=== PATIENT | male | born 1950 | race Caucasian/White ===

== ENCOUNTER 2017-07-12 06:49 | Emergency (ER) | payer MEDICARE, OTHER ==
[2017-07-12 07:22] VITALS: TEMP 97.6; BMI 25.8
--- NOTE | 2017-07-12 07:58 | PDOC ---
History of Present Illness - General Chief Complaint: Nasal Bleeding Stated Complaint: NOSEBLEED,FACIAL PAIN/ nose fx 2009 Time Seen by Provider: 07/12/17 07:33 History Source: Patient Exam Limitations: No Limitations - History of Present Illness Initial Comments: 07/12/17 07:49 66-year-old male presents to the ED with intermittent nasal bleeding and runny nose over the past 2 years. Patient states sustained a traumatic nasal fracture requiring surgery back in 2009 and states has been back and forth to [facility] since then and now that he has insurance he wants to continue the care that was recommended by an ENT specialist at [facility] that he may require reconstructive surgery. Patient currently denies headache, visual changes, difficulty breathing, foul taste in mouth, fever, or chills. Patient states frequent runny nose and allergy symptoms along with nasal bleeding but denies nasal bleeding greater than 5 minutes or passage of large clots. Timing/Duration: intermittent Severity: mild Associated Symptoms: reports: other (intermittent nasal bleeding) Past History - Travel Traveled outside of the country in the last 30 days: No Close contact w/someone who was outside of country & ill: No - Past Medical History Allergies/Adverse Reactions: Allergies Allergy/AdvReac Type Severity Reaction Status Date / Time No Known Allergies Allergy Verified 07/12/17 07:18 Home Medications: Ambulatory Orders Aspirin 81 mg PO DAILY 02/23/14 Neomy Sulf/Polymyx B Sulf/Hc [Cortisporin Ear Solution] 4 gtt OT Q4HWA #1 solution 02/23/14 Cardiac Disorders: Yes HTN: Yes - Surgical History Cardiac Surgery: Yes (TRIPLE BYPASS) - Psycho/Social/Smoking Cessation Hx Anxiety: No Suicidal Ideation: No Smoking Status: No Smoking History: Never smoked Have you smoked in the past 12 months: No Number of Cigarettes Smoked Daily: 0 If you are a former smoker, when did you quit?: UNKNOWN Information on smoking cessation initiated: No Hx Alcohol Use: No Drug/Substance Use Hx: No Substance Use Type: None Patient Lives Alone: No Lives with/in: spouse/SO Review of Systems - Review of Systems Able to Perform ROS?: Yes Constitutional: No: Symptoms Reported HEENTM: Yes: Nose Congestion, Nose Bleeding. No: Nose Pain, Throat Pain Respiratory: No: Symptoms reported Integumentary: No: Symptoms Reported Neurological: No: Headache Hematologic/Lymphatic: No: Symptoms Reported *Physical Exam - Vital Signs Last Vital Signs Temp Pulse Resp BP Pulse Ox 97.6 F 68 98 H 182/91 98 07/12/17 07:14 07/12/17 07:14 07/12/17 07:14 07/12/17 07:14 07/12/17 07:14 - Physical Exam General Appearance: Yes: Nourished, Appropriately Dressed. No: Apparent Distress HEENT: positive: EOMI, JUAN CARLOS, TMs Normal, Pharynx Normal, Rhinorrhea (whitish clear via right nare), Other (patient with noted deviated septum to the right with healed scar tissue to the nasal septum and mild disfigurement to the right side of nose). negative: Nasal Congestion, Sinus Tenderness Integumentary: positive: Normal Color, Warm, Moist Neurologic: positive: Motor Strength 5/5 (ambulatory) Medical Decision Making - Medical Decision Making 07/12/17 08:02 Patient came to the ER today for evaluation of intermittent nasal congestion or nasal bleeding for the past 2 years. Patient has no new complaints but states he had no insurance for the past 4 years and now was reinstated as of the first of this month and decided come to the ER. Patient states will be permanently relocated here and no longer in [facility]. Patient on exam had no acute findings but will give patient referral to ENT specialist here along with recommendations to follow-up with previous ENT specialist at [facility] that he saw a few years ago. Patient also states history of prehypertension but denies history of hypertension or taking medications for . Patient had an elevated BP here of 180s over 92. I've explained to patient he needs to follow-up with his PCP and also given instructions on alternative care including diet modifications for hHigh blood pressure *DC/Admit/Observation/Transfer Diagnosis at time of Disposition: Nasal bleeding - Discharge Dispostion Disposition: HOME Condition at time of disposition: Good - Referrals Referrals: Orlin Orellana MD [Primary Care Provider] - Jayce Cisneros MD [Staff Physician] - - Patient Instructions Printed Discharge Instructions: DI for Nosebleed, Deviated Nasal Septum, High Blood Pressure (Hypertension) (Alternative Therapy) Additional Instructions: At this time I do recommend that you either follow up with our ENT that has been enclosed on this discharge or your ENT specialist at [facility] for consultation and further management. I also do recommend that you follow-up with your PCP to discuss your blood pressure although you have no complaints presently.
--- NOTE | 2017-07-12 08:06 | PDOC ---
*Physical Exam - Vital Signs Last Vital Signs Temp Pulse Resp BP Pulse Ox 97.6 F 68 18 182/91 98 07/12/17 07:14 07/12/17 07:14 07/12/17 07:14 07/12/17 07:14 07/12/17 07:14 Medical Decision Making - Medical Decision Making 07/12/17 08:06 Pt seen by the Advanced Practice Provider under my direct supervision Ancillary studies reviewed I agree with plan as outlined by the Advanced Practice Provider NEENA Dawn *DC/Admit/Observation/Transfer Diagnosis at time of Disposition: Nasal bleeding - Discharge Dispostion Disposition: HOME Condition at time of disposition: Good - Referrals Referrals: Orlin Orellana MD [Primary Care Provider] - Jayce Cisneros MD [Staff Physician] - - Patient Instructions Printed Discharge Instructions: High Blood Pressure (Hypertension) ( Alternative Therapy), Deviated Nasal Septum, DI for Nosebleed Additional Instructions: At this time I do recommend that you either follow up with our ENT that has been enclosed on this discharge or your ENT specialist at [facility] for consultation and further management. I also do recommend that you follow-up with your PCP to discuss your blood pressure although you have no complaints presently. - Post Discharge Activity
[2017-07-12 08:28] VITALS: BP 186/107; PULSE 74
== END 2017-07-12 08:21 | disposition home or self-care (01) ==
LOC: JER 06:49
DX: R04.0 Epistaxis (principal); I25.810 Atherosclerosis of coronary artery bypass graft(s) without angina pectoris; I10 Essential (primary) hypertension; Z95.1 Presence of aortocoronary bypass graft; Z87.81 Personal history of (healed) traumatic fracture
CPT/HCPCS: 99282-25

== ENCOUNTER 2017-07-18 16:42 | Emergency (ER) | payer OTHER, MEDICARE ==
[2017-07-18 16:50] VITALS: BP 147/88; PULSE 60; TEMP 98.9; BMI 25.8
--- NOTE | 2017-07-18 17:13 | PDOC ---
History of Present Illness - General Chief Complaint: Injury Stated Complaint: INJURY Time Seen by Provider: 07/18/17 17:01 History Source: Patient Exam Limitations: No Limitations - History of Present Illness Initial Comments: 07/18/17 17:07 CHIEF COMPLAINT: Inversion injury left ankle HISTORY OF PRESENT ILLNESS: Patient is an otherwise healthy 66-year-old male who sustained an inversion injury to left ankle tripped on a curb. Patient denied any other injury, denies any back pain, no neck pain, no LOC. Now with left lateral ankle edema, no deformity. Occurred: reports: just prior to arrival Severity: Yes: moderate Lower Extremity Pain Location: left: ankle Method of Injury: Yes: twisted Modifying Factors: improves with: None Lower Ext. Injury Location - Specific Injury Location Ankle: left pain (left ankle), left swelling Extremity Pain Location - Extremity Pain Location Extremity Pain Locations: left: ankle Past History - Past Medical History Allergies/Adverse Reactions: Allergies Allergy/AdvReac Type Severity Reaction Status Date / Time No Known Allergies Allergy Verified 07/18/17 16:46 Home Medications: Ambulatory Orders Losartan Potassium 50 mg PO DAILY 07/12/17 Oxycodone HCl/Acetaminophen [Percocet 5-325 mg Tablet] 1 - 2 tab PO Q4H #20 tablet MDD 36 07/18/17 Cardiac Disorders: Yes HTN: Yes - Surgical History Cardiac Surgery: Yes (TRIPLE BYPASS) - Psycho/Social/Smoking Cessation Hx Anxiety: No Suicidal Ideation: No Smoking Status: No Smoking History: Former smoker Have you smoked in the past 12 months: No Number of Cigarettes Smoked Daily: 0 If you are a former smoker, when did you quit?: UNKNOWN Information on smoking cessation initiated: No Hx Alcohol Use: No Drug/Substance Use Hx: No Substance Use Type: None Review of Systems - Review of Systems Constitutional: No: Symptoms Reported Respiratory: No: Symptoms reported Cardiac (ROS): No: Symptoms Reported Musculoskeletal: Yes: Joint Pain, Joint Swelling. No: Muscle Pain, Muscle Weakness, Neck Pain, Joint Stiffness Integumentary: No: Bruising, Erythema Neurological: Yes: Unsteady Gait (unable to bear weight on the left ankle) All Other Systems: Reviewed and Negative *Physical Exam - Vital Signs Last Vital Signs Temp Pulse Resp BP Pulse Ox 98.9 F 60 19 147/88 98 07/18/17 16:46 07/18/17 16:46 07/18/17 16:46 07/18/17 16:46 07/18/17 16:46 - Physical Exam General Appearance: Yes: Appropriately Dressed. No: Apparent Distress Neck: negative: Tender lateral, Tender midline Respiratory/Chest: positive: Lungs Clear, Normal Breath Sounds. negative: Respiratory Distress, Accessory Muscle Use Gastrointestinal/Abdominal: positive: Normal Bowel Sounds, Soft. negative: Tender Musculoskeletal: positive: Decreased Range of Motion Extremity: positive: Normal Capillary Refill, Tender, Pedal Edema (left lateral ankle edema. ), Swelling. negative: Normal Range of Motion, Coldness, Cyanosis , Calf Tenderness, Erythema, Inflammation Integumentary: positive: Normal Color, Dry, Swelling. negative: Erythema, Ecchymosis, Bruising Neurologic: positive: Alert, Normal Mood/Affect, Normal Response, Motor Strength 5/5 Deep Tendon Reflexes: Ankle (L): 3+, Ankle (R): 3+ Procedures - Splinting Splint Location: Left: Ankle Pre-Proc Neuro Vasc Exam: normal Hand-Made Type: orthoglass Splint Type: Yes: Short Leg Post-Proc Neuro Vasc Exam: normal Neville Bandage: 4" Progress: 07/18/17 18:44 Crutches given for ambulation mouth Patient able to demonstrate proper use and safety. ED Treatment Course - RADIOLOGY Radiology Studies Ordered: Category Date Time Status ANKLE & FOOT-LEFT* [RAD] Stat Radiology 07/18/17 17:06 Ordered Medical Decision Making - Medical Decision Making 07/18/17 17:12 A/P : Patient with left lateral ankle injury. Sent to xray 07/18/17 17:34 X-ray demonstrated acute distal fibula fracture and apparent mild widening of the ankle mortise suggestive of possible ligamentous injury. Splint placed. Dr. caldwell called to discuss patient's x-rays and follow-up 07/18/17 19:[address] caldwell patient to be seen by Dr. Muñoz tomorrow Dr. Caldwell on Saturday, see procedure note. I discussed the physical exam findings, ancillary test results and final diagnoses with the patient. I answered all of the patient's questions. The patient was satisfied with the care received and felt comfortable with the discharge plan and treatment plan. The patient will call tomorrow to arrange follow-up and will return to the Emergency Department with any new, persistent or worsening symptoms. *DC/Admit/Observation/Transfer Diagnosis at time of Disposition: Fracture of distal end of left fibula Qualifiers: Encounter type: initial encounter Fracture type: closed Fracture morphology: unspecified fracture morphology Qualified Code(s): S82.832A - Other fracture of upper and lower end of left fibula, initial encounter for closed fracture - Discharge Dispostion Disposition: HOME Condition at time of disposition: Stable Admit: No - Prescriptions Prescriptions: Oxycodone HCl/Acetaminophen [Percocet 5-325 mg Tablet] 1 - 2 tab PO Q4H #20 tablet MDD 36 - Referrals Referrals: Orlin Orellana MD [Primary Care Provider] - - Patient Instructions Additional Instructions: 1. Please return to the emergency department with any redness, swelling, increased pain, or any other concerns. 2. Keep splint on. 3. Please follow up in the office of Dr. Caldwell, please call the office in the morning as per Dr. caldwell you can see Dr. Muñoz tomorrow or Dr. Caldwell on Saturday. 4. No weightbearing 5. Ice and elevate when at rest.
== END 2017-07-18 19:06 | disposition home or self-care (01) ==
LOC: JERFT 16:42
PROC: 2W3RX1Z Immobilization of Left Lower Leg using Splint (ICD-10-PCS; principal; 2017-07-18)
DX: S82.832A Other fracture of upper and lower end of left fibula, initial encounter for closed fracture (principal); W10.1XXA Fall (on)(from) sidewalk curb, initial encounter; Y93.01 Activity, walking, marching and hiking; Y92.480 Sidewalk as the place of occurrence of the external cause; I10 Essential (primary) hypertension
CPT/HCPCS: 73610-TC-LT; 73630-TC-LT; 99282-25

== ENCOUNTER 2017-07-26 06:03 | Day surgery (SDC) | payer OTHER, MEDICARE ==
[2017-07-24 16:25] VITALS: BMI 25.1
[2017-07-26] MEDS ORDERED: ROPIVACAINE HCL 0.5% 30ML VIAL ONE (08:11)
[2017-07-26] MEDS ORDERED: MIDAZOLAM HCL 2 MG/2 ML SINGLE DOSE VIAL ONE ×2 (08:13)
[2017-07-26] MEDS ORDERED: ONDANSETRON 4 MG/2 ML VIAL IVPUSH PRN (08:28)
[2017-07-26] MEDS ORDERED: oxyCODONE HCL 5 MG TABLET PO PRN (08:28)
[2017-07-26] MEDS ORDERED: LACTATED RINGERS SOLUTION 1,000 ML IV SCH (08:30)
--- NOTE | 2017-07-26 08:35 | HP ---
[facility] - Chief Complaint Chief Complaint: left ankle fx - Past Medical History Allergies/Adverse Reactions: Allergies Allergy/AdvReac Type Severity Reaction Status Date / Time No Known Allergies Allergy Verified 07/24/17 16:33 - Current Medications Current Medications: Home Medications Medication Instructions Recorded Losartan Potassium 50 mg PO DAILY 07/12/17 Ibuprofen [Advil -] 200 mg PO PRN PRN 07/24/17 Multivitamin [One Daily] 1 each PO DAILY 07/24/17 Hydrochlorothiazide [Hctz -] 12.5 mg PO ONCE 07/26/17 Metoprolol Succinate [Toprol Xl] 50 mg PO ONCE 07/26/17 Oxycodone HCl/Acetaminophen 1 - 2 tab PO Q6H #40 tablet MDD 8 07/26/17 [Percocet 5-325 mg Tablet] Satellite Physical Exam - Physical Examination Vital Signs: Vital Signs Period Temp Pulse Resp BP Sys/Whtiman Pulse Ox Last 24 Hr 98.4 F 66 18 140/75 97 General Appearance: Well Nourished, Well Developed, Alert & Oriented x3 ENT: Clear Lung: Normal air movement Heart: Regular rate & rhythm Extremities: Other (left ankle- splint intact, + swelling, + ttp, nvi xrays show displaced distal fibula fx) Neurological: Intact, Alert, Oriented Satellite Impression/Plan - Impression/Plan Impression: left ankle fx Operative Procedure: left ankle orif Date to be Performed: 07/26/17
[2017-07-26] MEDS ORDERED: PROPOFOL 20 ML ONE (09:20)
[2017-07-26] MEDS ORDERED: ePHEDrine SULFATE 50 MG/1 ML AMPULE ONE (09:27)
[2017-07-26] MEDS ORDERED: ceFAZolin SODIUM 1 GM VIAL IVPB ONE (09:35)
[2017-07-26] MEDS ORDERED: ceFAZolin SODIUM 1 GM VIAL ONE (09:38)
[2017-07-26] MEDS ORDERED: DEXAMETHASONE SOD PHOSPHATE 4 MG/1 ML VIAL ONE (09:38)
[2017-07-26] MEDS ORDERED: KETOROLAC TROMETHAMINE 30 MG/1 ML VIAL ONE (10:09)
--- NOTE | 2017-07-26 10:22 | OP ---
Operative Note - Note: Operative Date: 07/26/17 ([facility]) Pre-Operative Diagnosis: left distal fibula fx Operation: left distal fibula orif Post-Operative Diagnosis: Same as Pre-op Surgeon: Jason Caldwell Billing Customer Service Representative: Fito Ribera Anesthesiologist/CELL OPERATION SUPERVISOR: Darlyn Cooper Anesthesia: General, Local Estimated Blood Loss (mls): 5 (tourniquet) Operative Report Dictated: Yes
--- NOTE | 2017-07-26 11:03 | OP ---
DATE OF OPERATION: 07/26/2017 PREOPERATIVE DIAGNOSIS: Displaced left lateral malleolus fracture. POSTOPERATIVE DIAGNOSIS: Displaced left lateral malleolus fracture. PROCEDURE: Open reduction and internal fixation of left lateral malleolus fracture. SURGICAL ATTENDING: Jason Caldwell MD SPARK TESTER: MILO Mittal ANESTHESIA: Popliteal block and general. CLOSURE: A [place] distal fibular plate with appropriate screws and lag screws; 2-0 for subcutaneous, 3-0 Monocryl subcuticular, skin with skin glue. ESTIMATED BLOOD LOSS: Negligible. TOURNIQUET TIME: Approximately 40 minutes. COMPLICATIONS: None. CONDITION: To recovery room in stable condition. DESCRIPTION OF OPERATIVE PROCEDURE: Patient taken to the operating room on July 26, 2017. Popliteal block as well as general anesthesia was administered by the anesthesiologist. IV Kefzol was administered prophylactically prior to the case. A well-padded pneumatic tourniquet was placed on the left proximal calf away from the fibular head. Left lower extremity was prepped and draped in the usual sterile fashion. The leg was exsanguinated with an Esmarch bandage. Tourniquet was inflated to 250 mmHg. An approximately 8-cm longitudinal incision over the distal fibula was incised. Hemostasis achieved with Bovie cautery. Sharp dissection was carried down full thickness down to the level of the fracture. Periosteal elevators were used to expose the fracture proximally and distally. Curettes and irrigation were used to clean up the fracture site. A serrated reduction clamp was used to achieve an anatomical reduction of the fracture. The fracture was lagged using standard lag technique from anterior proximal to distal posterior, achieving excellent compression of the fracture site. A Sullivan distal fibula plate was clamped to the distal fibula. One proximal and one distal nonlocking screw were used to cinch the plate to the bone. Multiple distal and proximal screws were then drilled, depth gauged, and screwed to the appropriate size of locking screws, achieving excellent fixation. Excellent reduction of the fracture with excellent position of all the hardware was confirmed on the AP, mortise, and lateral views by use of the image intensifier. The incision was irrigated out with copious amounts of irrigation. The fascia and subcutaneous were closed with 2-0 Vicryl, 3-0 Monocryl subcuticular, skin glue for the skin. Sterile pressure dressing, followed by a U-splint was applied. The patient was awakened from anesthesia and transferred to recovery in stable condition. No complications. Estimated blood loss was negligible. Khadra ALONSO/[id number]
[2017-07-26] MEDS ORDERED: oxyCODONE HCL 5 MG TABLET ONE (11:23)
[2017-07-26 12:05] VITALS: TEMP 97.9
[2017-07-26 14:19] VITALS: BP 138/66; PULSE 70
== END 2017-07-26 13:15 | disposition home or self-care (01) ==
LOC: JASU-SURG 06:03
PROVIDERS: ATTEND Orthopaedic Surgery
PROC: 0QSK04Z Reposition Left Fibula with Internal Fixation Device, Open Approach (ICD-10-PCS; principal; 2017-07-26 08:45)
DX: S82.62XA Displaced fracture of lateral malleolus of left fibula, initial encounter for closed fracture (principal); X58.XXXA Exposure to other specified factors, initial encounter; Y93.9 Activity, unspecified; Y92.9 Unspecified place or not applicable; Y99.9 Unspecified external cause status
CPT/HCPCS: 76000-TC; 94760

== ENCOUNTER 2017-11-01 17:39 | Emergency (ER) | payer OTHER, MEDICARE ==
--- NOTE | 2017-11-01 17:47 | PDOC ---
Rapid Medical Evaluation Time Seen by Provider: 11/01/17 17:42 Medical Evaluation: Allergies Allergy/AdvReac Type Severity Reaction Status Date / Time No Known Allergies Allergy Verified 07/24/17 16:33 11/01/17 17:42 I have performed a brief in-person evaluation of this patient. The patient presents with a chief complaint of: left ankle pain Pertinent physical exam findings: EXT: erythema to left lateral ankle at surgical site I have ordered the following: cbc, bmp The patient will proceed to the ED for further evaluation. Discharge Disposition - Diagnosis Ankle pain - Referrals - Patient Instructions - Post Discharge Activity
[2017-11-01 17:51] VITALS: TEMP 98.2; BMI 28.1
[2017-11-01 20:49] LABS: BASO # 0.1 # (0.1-1); BASO % 0.5 % (0-2.0); EOS # 0.1 # (0-4.5); LYMPH # 1.7 (8-40); MCH 28.4 pg (25.7-33.7); MCHC 34.2 g/dl (32.0-35.9); MEAN CELL VOLUME 82.9 fl (80-96); MEAN PLT VOLUME 8.2 fl (7.5-11.1); MONO # 0.9 # (3.8-10.2); NEUT # 8.5 # (42.8-82.8); NEUT % 75.3 % (42.8-82.8); PLATELET COUNT 168 K/MM3 (134-434); RDW 12.9 % (11.9-15.9); WHITE BLOOD COUNT 11.3 K/mm3 (4.0-10.0)
[2017-11-01] MEDS ORDERED: CEPHALEXIN MONOHYDRATE 500 MG CAPSULE (UD) PO ONE (20:57)
[2017-11-01] MEDS ORDERED: SULFAMETHOXAZOLE/TRIMETHOPRIM 800MG/160MG D.S. TABLET PO ONE (20:57)
[2017-11-01] MEDS ORDERED: CEPHALEXIN MONOHYDRATE 250 MG CAPSULE (FP) ONE (21:04)
[2017-11-01] MEDS ORDERED: SULFAMETHOXAZOLE/TRIMETHOPRIM 800MG/160MG D.S. TABLET ONE (21:04)
[2017-11-01 21:13] LABS: ANION GAP 8 (8-16); CALCIUM 9.1 mg/dL (8.5-10.1); CO2 27 mmol/L (21-32); CREATININE 0.9 mg/dL (0.7-1.3); GLUCOSE,RANDOM 77 mg/dL (74-106)
--- NOTE | 2017-11-01 21:13 | PDOC ---
History of Present Illness - General History Source: Patient, Old Records Exam Limitations: No Limitations - History of Present Illness Initial Comments: 11/01/17 21:27 The patient is a 66 year old male, with a significant past medical history of basal cell CA (under treatment but no chemo), HTN and tripple bypass surgery, who presents to the emergency department with erytha and discharge from a surgical site on his left ankle. He reports that his surgeon gave him the green light to walk around and he was walking around fine until recently. He states that he did wear new boots recently and thinks that the rubbing of the new boots may have exacerbated the surgical site. The patient denies chest pain, shortness of breath, headache and dizziness. Denies fever, chills, nausea, vomit, diarrhea and constipation. Denies dysuria, frequency, urgency and hematuria. Allergies: None Past surgical history: Left ankle surgery, tripple bypass surgery Social history: (+) Cigarette use. No alcohol or drug use reported Surgeon: Dr. Caldwell <Ge Campbell - Last Filed: 11/01/17 21:27> <Yobani Chavez - Last Filed: 11/02/17 01:43> - General Chief Complaint: Pain, Acute Stated Complaint: PAIN Time Seen by Provider: 11/01/17 17:42 Past History <Ge Campbell - Last Filed: 11/01/17 21:27> - Past Medical History Cancer: Yes (BASAL CELL-NOSE, GOING FOR MOH'S PROCEDURE) Cardiac Disorders: Yes COPD: No CHF: (TRIPLE BYPASS 10YRS AGO) HTN: Yes - Surgical History Cardiac Surgery: Yes (TRIPLE BYPASS) - Suicide/Smoking/Psychosocial Hx Smoking Status: No Smoking History: Never smoked Have you smoked in the past 12 months: No Number of Cigarettes Smoked Daily: 0 If you are a former smoker, when did you quit?: UNKNOWN Information on smoking cessation initiated: No Hx Alcohol Use: No Drug/Substance Use Hx: No Substance Use Type: None Hx Substance Use Treatment: No <Yobani Chavez - Last Filed: 11/02/17 01:43> - Past Medical History Allergies/Adverse Reactions: Allergies Allergy/AdvReac Type Severity Reaction Status Date / Time No Known Allergies Allergy Verified 11/01/17 17:44 Home Medications: Ambulatory Orders Losartan Potassium 50 mg PO DAILY 07/12/17 Clindamycin [Cleocin -] 450 mg PO Q6H #84 capsule 11/01/17 Review of Systems - Review of Systems Able to Perform ROS?: Yes Comments:: 11/01/17 21:28 Constitutional: No recent illness; no fever ENT: No sore throat Cardiovascular: No palpitations; no chest pain Pulmonary: No cough; no trouble breathing Gastrointestinal: No nausea; no vomiting; no diarrhea Genitourinary: No urinary problems; no hematuria Skin: (+) Left ankle cellulitis with pus drainage Lymph system: No swollen glands Musculoskeletal: No joint swelling Neurological: No weakness; no numbness; No Headache; no vertigo; no lightheadedness Psychiatric:No anxiety; no depression ROS: A complete review of 10 out of 10 review of systems is taken and is negative apart from what is previously mentioned below and in the HPI. <Ge Campbell - Last Filed: 11/01/17 21:27> *Physical Exam - Vital Signs Last Vital Signs Temp Pulse Resp BP Pulse Ox 98.2 F 85 16 136/94 100 11/01/17 17:44 11/01/17 17:44 11/01/17 17:44 11/01/17 17:44 11/01/17 17:44 - Physical Exam Comments: 11/01/17 21:28 Vitals: Triage vital signs reviewed General Appearance: No acute distress, well nourished, well developed Head: Atraumatic Neck: Supple; No nuchal rigidity Chest Wall: Nontender Cardiac: Regular rate and rhythm, no murmurs, no rubs, no gallops Lungs: Clear to auscultation bilateral, good air movement bilaterally Abdomen: Soft, nondistended, normal bowel sounds, nontender to palpation Genitourinary: Rectal: Exam deferred Extremities: Full range of motion to all extremities, no cyanosis, clubbing, or edema Skin: (+) Incision site in the ORIF area with slight break down of skin with cellulitis approximately measuring 10 cm by 9 cm. Neuro: AOX3; Cranial Nerves 2-12 grossly intact, Strength intact to all extremities, Sensation intact to all extremities. Psych: Normal mood, normal affect <Ge Campbell - Last Filed: 11/01/17 21:27> - Vital Signs Last Vital Signs Temp Pulse Resp BP Pulse Ox 98.2 F 85 16 136/94 100 11/01/17 17:44 11/01/17 17:44 11/01/17 17:44 11/01/17 17:44 11/01/17 17:44 <Yobani Chavez - Last Filed: 11/02/17 01:43> ED Treatment Course - LABORATORY CBC & Chemistry Diagram: 11/01/17 20:05 11/01/17 20:05 - ADDITIONAL ORDERS Additional order review: Laboratory Results 11/01/17 20:05 Sodium 138 Potassium 4.1 Chloride 103 Carbon Dioxide 27 Anion Gap 8 BUN 15 D Creatinine 0.9 Random Glucose 77 Calcium 9.1 11/01/17 20:05 RBC 5.28 MCV 82.9 MCHC 34.2 RDW 12.9 MPV 8.2 Neutrophils % 75.3 Lymphocytes % 15.5 Monocytes % 7.7 Eosinophils % 1.0 Basophils % 0.5 - Medications Given in the ED: ED Medications Discontinued Medications Generic Name Dose Route Start Last Admin Trade Name Freq PRN Reason Stop Dose Admin Cephalexin HCl 500 mg 11/01/17 20:57 11/01/17 21:06 Keflex - PO 11/01/17 20:58 500 mg ONCE ONE Administration Trimethoprim/Sulfamethoxazole 1 each 11/01/17 20:57 11/01/17 21:06 Bactrim Ds - PO 11/01/17 20:58 1 each ONCE ONE Administration <Ge Campbell - Last Filed: 11/01/17 21:27> - LABORATORY CBC & Chemistry Diagram: 11/01/17 20:05 11/01/17 20:05 - ADDITIONAL ORDERS Additional order review: 11/01/17 20:05 RBC 5.28 MCV 82.9 MCHC 34.2 RDW 12.9 MPV 8.2 Neutrophils % 75.3 Lymphocytes % 15.5 Monocytes % 7.7 Eosinophils % 1.0 Basophils % 0.5 - RADIOLOGY Radiology Studies Ordered: Category Date Time Status ANKLE-LEFT [RAD] Stat Radiology 11/01/17 19:18 Completed - Medications Given in the ED: ED Medications Discontinued Medications Generic Name Dose Route Start Last Admin Trade Name Freq PRN Reason Stop Dose Admin Cephalexin HCl 500 mg 11/01/17 20:57 11/01/17 21:06 Keflex - PO 11/01/17 20:58 500 mg ONCE ONE Administration Trimethoprim/Sulfamethoxazole 1 each 11/01/17 20:57 11/01/17 21:06 Bactrim Ds - PO 11/01/17 20:58 1 each ONCE ONE Administration <Yobani Chavez - Last Filed: 11/02/17 01:43> Medical Decision Making - Medical Decision Making 11/02/17 01:42 Patient presents to the ED with cellulitis around surgical incision site. Surgery was in July. Patient states that recently he was wearing boots that had 4 way at the skin over the area of the incision. There is a small amount of discharge from the site which was expressed. There is no other fluctuance. Cellulitic area is approximately 10 cm x 10 cm. He is not immunocompromised no history of diabetes no chemotherapy. Labs within normal limits x-ray with no acute findings except for old ORIF. Case discussed with patient's orthopedic surgeon. Given age and that patient is on losartan Bactrim antibiotic changed to clindamycin We'll discharge on seven-day course of clindamycin. He will return to the emergency department in 2 days for a wound check. He was instructed to return to the emergency department immediately for any fever or spreading redness streaking red lines fevers chills or for any concerns he was also instructed follow-up with his doctor and/or his orthopedist next week Findings, the need for follow-up and strict return instructions discussed with patient. <Yobani Chavez - Last Filed: 11/02/17 01:43> *DC/Admit/Observation/Transfer - Attestations Scribe Attestion: 11/01/17 21:28 Documentation prepared by Ge Campbell, acting as manager medical affairs for Yobani Chavez MD, MD/DO. <Ge Campbell - Last Filed: 11/01/17 21:27> - Discharge Dispostion Admit: No <Yobani Chavez - Last Filed: 11/02/17 01:43> Diagnosis at time of Disposition: Ankle pain Qualifiers: Chronicity: unspecified Laterality: left Qualified Code(s): M25.572 - Pain in left ankle and joints of left foot Cellulitis Qualifiers: Site of cellulitis: extremity Site of cellulitis of extremity: lower extremity Laterality: left Qualified Code(s): L03.116 - Cellulitis of left lower limb - Discharge Dispostion Disposition: HOME Condition at time of disposition: Good - Prescriptions Prescriptions: Clindamycin [Cleocin -] 450 mg PO Q6H #84 capsule - Referrals Referrals: Orlin Orellana MD [Primary Care Provider] - - Patient Instructions Printed Discharge Instructions: Cellulitis Additional Instructions: Take Keflex and Bactrim as prescribed. Return to the emergency department in 2 days for wound check. Return to the emergency department immediately for any redness that is spreading side of the marked area, streaking red lines, fever, severe pain or for any concerns Next week follow-up with your primary care provider or with Dr. Caldwell orthopedics. - Post Discharge Activity
[2017-11-01] MEDS ORDERED: CLINDAMYCIN HCL 150 MG CAPSULE (FP) PO ONE (21:27)
[2017-11-01] MEDS ORDERED: CLINDAMYCIN HCL 150 MG CAPSULE (FP) ONE (21:30)
[2017-11-01 21:44] VITALS: BP 132/66; PULSE 71
== END 2017-11-01 21:44 | disposition home or self-care (01) ==
LOC: JER 17:39
DX: L03.116 Cellulitis of left lower limb (principal); C44.391 Other specified malignant neoplasm of skin of nose; I25.10 Atherosclerotic heart disease of native coronary artery without angina pectoris; I10 Essential (primary) hypertension; F17.210 Nicotine dependence, cigarettes, uncomplicated; Z95.1 Presence of aortocoronary bypass graft
CPT/HCPCS: 36415; 73610-TC-LT; 80048; 85025; 99283-25

== ENCOUNTER 2018-01-09 17:06 | Observation (INO) | payer OTHER, MEDICARE ==
--- NOTE | 2018-01-09 17:16 | PDOC ---
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
--- NOTE | 2018-01-09 17:52 | PDOC ---
History of Present Illness - General Chief Complaint: Chest Pain Stated Complaint: CHEST PAIN Time Seen by Provider: 01/09/18 17:12 - History of Present Illness Initial Comments: 01/09/18 18:00 The patient is a 67 year old male with a history of HTN, CAD, [place] s/p triple bypass surgery in 2009 who presents for evaluation of chest pain. The patient reports intermittent left sided chest tightness over the past few days that has since become constant with some associated SOB prompting his presentation to the ED for evaluation. He states that he believes his symptoms are similar to his symptoms prior to his bypass surgery. He notes that he has also been under a number of social stressors which he states has exacerbated his symptoms. 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 He otherwise denies fevers, chills, nausea, vomiting, abdominal pain, or changes with urination or bowel movements. Past History - Past Medical History Allergies/Adverse Reactions: Allergies Allergy/AdvReac Type Severity Reaction Status Date / Time No Known Allergies Allergy Verified 01/09/18 17:14 Home Medications: Ambulatory Orders Losartan Potassium 50 mg PO DAILY 07/12/17 Cancer: Yes (BASAL CELL-NOSE, GOING FOR MOH'S PROCEDURE) Cardiac Disorders: Yes COPD: No CHF: (TRIPLE BYPASS 10YRS AGO) HTN: Yes - Surgical History Cardiac Surgery: Yes (TRIPLE BYPASS) - Suicide/Smoking/Psychosocial Hx Smoking Status: No Smoking History: Former smoker Have you smoked in the past 12 months: No Number of Cigarettes Smoked Daily: 0 If you are a former smoker, when did you quit?: 30yrs ago Information on smoking cessation initiated: No Hx Alcohol Use: No Drug/Substance Use Hx: No Substance Use Type: None Hx Substance Use Treatment: No Review of Systems - Review of Systems Comments:: 01/09/18 18:05 Constitutional: No fevers, chills, fatigue, malaise HEENT: No Rhinorrhea, nasal congestion, visual changes Cardiovascular: Left sided chest tightness. No syncope, palpitations, lightheadedness Respiratory: SOB. No Cough, Hemoptysis, Gastrointestinal: No Abdominal pain, Nausea, Vomiting, Constipation, Diarrhea, Melena Genitourinary: No Dysuria, Frequency, Urgency, Hesitancy, Hematuria, Flank pain Musculoskeletal: No Myalgia, arthralgia Skin: No rashes, itching, bruising, pallor Neurologic: No Headache, Dizziness, Numbness, Weakness, or Tingling Psychiatric: No Hallucinations. No SI or HI *Physical Exam - Vital Signs Last Vital Signs Temp Pulse Resp BP Pulse Ox 97.8 F 92 H 18 148/87 95 01/09/18 17:14 01/09/18 17:14 01/09/18 17:14 01/09/18 17:14 01/09/18 17:14 - Physical Exam Comments: 01/09/18 18:05 General Appearance: Nourished. No Apparent Distress HEENT: EOMI, JUAN CARLOS. No Pharyngeal Erythema, Tonsillar Exudate, Tonsillar Erythema Neck: No Cervical Lymphadenopathy Respiratory/Chest: Lungs Clear, Normal Breath Sounds. No Crackles, Rales, Rhonchi, Wheezing Cardiovascular: Regular Rhythm, Regular Rate. No Murmur, Gallops, Rubs Gastrointestinal/Abdominal: Normal Bowel Sounds, Soft. No Guarding, Rebound, Tenderness Musculoskeletal: No CVA Tenderness Extremity: Normal Capillary Refill Integumentary: Normal Color, Dry, Warm Neurologic: Fully Oriented, Alert, Normal Mood/Affect, Normal Response, Heart Score/ECG Review #1 ECG reviewed & interpreted by me at: 18:33 General ECG Interpretation: Sinus Rhythm, Normal Rate, Normal Intervals, No acute ischemic changes ED Treatment Course - LABORATORY CBC & Chemistry Diagram: 01/09/18 18:15 01/09/18 18:15 Medical Decision Making - Medical Decision Making 01/09/18 18:06 The patient is a 67 year old male with a history of HTN, CAD, [place] s/p triple bypass surgery in 2009 who presents for evaluation of chest pain. Differential includes but is not limited to: ACS, Pneumonia, musculoskeletal, infectious, metabolic derangement. Given the patient's significant cardiac history, we are concerned for acs. We will obtain a cbc, cmp, troponin, ekg, and chest plain film to evaluate further. We will continue to monitor and reassess. 01/09/18 18:54 Patient signed out to Dr. Raymond pended labs and likely tele obs admission. *DC/Admit/Observation/Transfer Diagnosis at time of Disposition: Chest pain Qualifiers: Chest pain type: unspecified Qualified Code(s): R07.9 - Chest pain, unspecified - Referrals - Patient Instructions - Post Discharge Activity
--- NOTE | 2018-01-09 18:30 | PDOC ---
Attending Attestation - Resident Resident Name: Pepe Mckeon - ED Attending Attestation I have performed the following: I have examined & evaluated the patient, The case was reviewed & discussed with the resident, I agree w/resident's findings & plan, Exceptions are as noted - HPI HPI: 01/09/18 18:30 67y M hx of htn, hl, NC sp cabg presents with chest tightness x a few days that was intemittent but is now constant. pt states he has been having intermittent pain for a while, lindsay tis worse with exertion. there is associated sob, denies any n/v, diaphoresis, f/c, cough, hemoptysis, leg swelling, abd pain. feels similar to previous cp prior to his cabg on exam pt is well appearing, in no distress GENERAL: The patient is awake, alert, and fully oriented, Nontoxic - in no acute distress. HEAD: Normocephalic, atraumatic. EYES: extraocular movements intact, sclera anicteric, conjunctiva clear. ENT: mild erythema on midface, missing nose due to surgery, no bleeding/ discharge NECK: Normal range of motion, supple LUNGS: Breath sounds equal, clear to auscultation bilaterally. No wheezes, no rhonchi, no rales. HEART: Regular rate and rhythm, normal S1 and S2 without murmur, rub or gallop. ABDOMEN: Soft, nontender, No guarding, no rebound. . No CVA tenderness EXTREMITIES: Normal range of motion, no edema. No clubbing or cyanosis. No cords, erythema, or tenderness. NEUROLOGICAL: No facial assymetry, Normal speech, PSYCH: Normal mood, normal affect. SKIN: Warm, Dry, normal turgor, labs ekg cxr asa anticipate obs pt for AMINA workup will dw PMD and cardiolgist pt states he stopped taking ASA and a 'blood thinner' due to his liver will give him a dose of ASA 01/09/18 20:44 trop neg x 1 ck elevated ckmb pending HEART score moderate risk - Physicial Exam PE: 01/10/18 03:16 see above - Medical Decision Making 01/10/18 03:16 see above Heart Score/ECG Review - ECG Impressions Comment:: 01/09/18 18:33 Twelve-lead EKG was performed and reviewed by me. There is normal sinus rhythm with a normal rate. Rate of 93 The axis is normal. The intervals are normal. There is normal R wave progression There are no ST or T wave abnormalities.
[2018-01-09 18:36] LABS: BASO % 0.6 % (0-2.0); EOS % 0.8 % (0-4.5); HEMATOCRIT 42.9 % (35.4-49); HEMOGLOBIN 14.9 GM/dL (11.7-16.9); LYMPH % 15.6 % (8-40); MCH 28.7 pg (25.7-33.7); MCHC 34.8 g/dl (32.0-35.9); MEAN CELL VOLUME 82.5 fl (80-96); MEAN PLT VOLUME 7.4 fl (7.5-11.1); MONO % 11.1 % (3.8-10.2); NEUT % 71.9 % (42.8-82.8); PLATELET COUNT 159 K/MM3 (134-434); RDW 13.9 % (11.9-15.9); WHITE BLOOD COUNT 7.2 K/mm3 (4.0-10.0)
[2018-01-09 19:10] LABS: ALBUMIN 4.4 g/dl (3.4-5.0); ANION GAP 9 (8-16); BILIRUBIN,TOTAL 0.7 mg/dL (0.2-1.0); BLOOD UREA NITROGEN 15 mg/dL (7-18); CALCIUM 8.9 mg/dL (8.5-10.1); CHLORIDE 103 mmol/L (98-107); CO2 25 mmol/L (21-32); GLUCOSE,RANDOM 73 mg/dL (74-106); POTASSIUM 4.1 mmol/L (3.5-5.1); SGOT/AST 43 U/L (15-37); SGPT/ALT 65 U/L (12-78); SODIUM 137 mmol/L (136-145); TOT PROT 8.4 g/dl (6.4-8.2)
[2018-01-09 19:11] LABS: INR 1.04 (0.82-1.09); PROTHROMBIN TIME (PATIENT) 11.7 SEC (9.98-11.88)
[2018-01-09 19:13] LABS: ALK PHOS 78 U/L (45-117)
--- NOTE | 2018-01-09 20:31 | PDOC ---
*Physical Exam - Vital Signs Last Vital Signs Temp Pulse Resp BP Pulse Ox 97.8 F 79 18 109/81 100 01/09/18 17:14 01/09/18 18:37 01/09/18 18:37 01/09/18 18:37 01/09/18 18:37 <Lucy Estrella - Last Filed: 01/09/18 21:07> - Vital Signs Last Vital Signs Temp Pulse Resp BP Pulse Ox 97.8 F 79 18 109/81 100 01/09/18 17:14 01/09/18 18:37 01/09/18 18:37 01/09/18 18:37 01/09/18 18:37 <Chinedu Spear - Last Filed: 01/09/18 21:55> Heart Score/ECG Review - History History: Highly suspicious - Electrocardiogram EKG: Normal - Age Age: >/= 65 - Risk Factors Risk Factors Heart Score: Yes Hx Hypertension Based on the list above the patient has:: 1-2 risk factors - Troponin Troponin: </= normal limit - Score Heart Score - Total: 5 <Chinedu Spear - Last Filed: 01/09/18 21:55> ED Treatment Course - LABORATORY CBC & Chemistry Diagram: 01/09/18 18:15 01/09/18 18:15 - ADDITIONAL ORDERS Additional order review: Laboratory Results 01/09/18 01/09/18 18:15 18:15 PT with INR 11.70 INR 1.04 Sodium 137 Potassium 4.1 Chloride 103 Carbon Dioxide 25 Anion Gap 9 BUN 15 Creatinine 1.0 Creat Clearance w eGFR > 60 Random Glucose 73 L Calcium 8.9 Total Bilirubin 0.7 D AST 43 H D ALT 65 D Alkaline Phosphatase 78 D Creatine Kinase 336 H Creatine Kinase Index 1.8 CK-MB (CK-2) 6.141 H Troponin I < 0.02 Total Protein 8.4 H Albumin 4.4 01/09/18 18:15 RBC 5.20 MCV 82.5 MCHC 34.8 RDW 13.9 MPV 7.4 L Neutrophils % 71.9 Lymphocytes % 15.6 Monocytes % 11.1 H Eosinophils % 0.8 Basophils % 0.6 - Medications Given in the ED: ED Medications Discontinued Medications Generic Name Dose Route Start Last Admin Trade Name Freq PRN Reason Stop Dose Admin Aspirin 324 mg 01/09/18 20:43 01/09/18 20:51 Asa - PO 01/09/18 20:44 324 mg ONCE ONE Administration <Lucy Estrella - Last Filed: 01/09/18 21:07> - LABORATORY CBC & Chemistry Diagram: 01/09/18 18:15 01/09/18 18:15 - ADDITIONAL ORDERS Additional order review: Laboratory Results 01/09/18 01/09/18 18:15 18:15 PT with INR 11.70 INR 1.04 Sodium 137 Potassium 4.1 Chloride 103 Carbon Dioxide 25 Anion Gap 9 BUN 15 Creatinine 1.0 Creat Clearance w eGFR > 60 Random Glucose 73 L Calcium 8.9 Total Bilirubin 0.7 D AST 43 H D ALT 65 D Alkaline Phosphatase 78 D Creatine Kinase 336 H Troponin I < 0.02 Total Protein 8.4 H Albumin 4.4 01/09/18 18:15 RBC 5.20 MCV 82.5 MCHC 34.8 RDW 13.9 MPV 7.4 L Neutrophils % 71.9 Lymphocytes % 15.6 Monocytes % 11.1 H Eosinophils % 0.8 Basophils % 0.6 <Chinedu Spear - Last Filed: 01/09/18 21:55> Medical Decision Making - Medical Decision Making 01/09/18 20:31 Care taken over from Dr. Mckeon. Dr. Rooney paged for admission. 01/09/18 21:55 Discussed patient w/ Dr. Rooney who will admit for tele-obs overnight. <Chinedu Spear - Last Filed: 01/09/18 21:55> *DC/Admit/Observation/Transfer <Lucy Estrella - Last Filed: 01/09/18 21:07> - Discharge Dispostion Admit: Yes <Chinedu Spear - Last Filed: 01/09/18 21:55> Diagnosis at time of Disposition: Chest pain Qualifiers: Chest pain type: unspecified Qualified Code(s): R07.9 - Chest pain, unspecified
[2018-01-09] MEDS ORDERED: ASPIRIN 81 MG CHEWABLE TABLETS PO ONE (20:43)
[2018-01-09] MEDS ORDERED: ASPIRIN 81 MG CHEWABLE TABLETS ONE (20:47)
[2018-01-10 01:02] VITALS: BMI 26.3
[2018-01-10 08:02] LABS: ANION GAP 6 (8-16); BLOOD UREA NITROGEN 19 mg/dL (7-18); CALCIUM 8.4 mg/dL (8.5-10.1); CHLORIDE 102 mmol/L (98-107); CO2 29 mmol/L (21-32); CREATININE 1.1 mg/dL (0.7-1.3); GLUCOSE,RANDOM 85 mg/dL (74-106); POTASSIUM 4.7 mmol/L (3.5-5.1); SODIUM 137 mmol/L (136-145)
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
[2018-01-10] MEDS ORDERED: LOSARTAN POTASSIUM 50 MG TABLET (FP) PO SCH (10:00)
[2018-01-10] MEDS ORDERED: HEPARIN NA (PORCINE) 5,000 UNITS/ML 1ML VIAL SQ SCH (10:00)
[2018-01-10] MEDS ORDERED: ASPIRIN COATED 81 MG TABLET.EC PO SCH (10:00)
--- NOTE | 2018-01-10 10:06 | EKG ---
Test Reason : Blood Pressure : / mmHG Vent. Rate : 093 BPM Atrial Rate : 093 BPM P-R Int : 178 ms QRS Dur : 084 ms QT Int : 344 ms P-R-T Axes : 078 043 052 degrees QTc Int : 427 ms NORMAL SINUS RHYTHM POSSIBLE LEFT ATRIAL ENLARGEMENT WHEN COMPARED WITH ECG OF 08-APR-2012 00:09, NO SIGNIFICANT CHANGE WAS FOUND Confirmed by MACARENA RANDOLPH MD ([id number]) on 01/10/2018 10:05:32 AM Referred By: Confirmed By:MACARENA RANDOLPH MD
[2018-01-10] MEDS ORDERED: REGADENOSON 0.4 MG/5 ML PRE-FILLED SYRINGE IVPUSH ONE ×2 (11:45→13:41)
--- NOTE | 2018-01-10 18:21 | HP ---
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) - Past Surgical History Past Surgical History: Yes: CABG - Smoking History Smoking history: Former smoker Have you smoked in the past 12 months: No Aproximately how many cigarettes per day: 0 If you are a former smoker, when did you quit?: 30yrs ago - Alcohol/Substance Use Hx Alcohol Use: No - Social History History of Recent Travel: No Home Medications - Allergies Allergies/Adverse Reactions: Allergies Allergy/AdvReac Type Severity Reaction Status Date / Time No Known Allergies Allergy Verified 01/09/18 17:14 - Home Medications Home Medications: Ambulatory Orders Losartan Potassium 50 mg PO DAILY 07/12/17 Physical Examination Vital Signs: Vital Signs Temperature 98.2 F 01/10/18 08:59 Pulse Rate 64 01/10/18 08:59 Respiratory Rate 14 01/10/18 08:59 Blood Pressure 112/66 01/10/18 08:59 O2 Sat by Pulse Oximetry (%) 96 01/10/18 08:59 Labs: CBC, BMP 01/09/18 18:15 01/10/18 06:48
[2018-01-10 19:00] VITALS: BP 127/64; PULSE 74; TEMP 98.3
== END 2018-01-10 19:34 | disposition home or self-care (01) ==
LOC: JER 17:06 → JERBED 21:56 → J4W 01-10 00:12
PROVIDERS: ADMIT Internal Medicine; ATTEND Internal Medicine
DX: R07.9 Chest pain, unspecified (principal); I10 Essential (primary) hypertension; I25.10 Atherosclerotic heart disease of native coronary artery without angina pectoris; I25.2 Old myocardial infarction; Z95.1 Presence of aortocoronary bypass graft; Z85.828 Personal history of other malignant neoplasm of skin; Z87.891 Personal history of nicotine dependence
CPT/HCPCS: 36415; 71045-TC-FY; 78452-TC; 80048; 80053; 82550; 82553; 84484; 85025; 85610; 93005; 93010; 93017; 93306-TC; 99285-25; A9502; G0378; J2785

== ENCOUNTER 2019-09-29 10:24 | Emergency (ER) | payer OTHER, MEDICARE ==
[2019-09-29 10:38] VITALS: BP 139/68; PULSE 70; TEMP 97.5; BMI 26.6
[2019-09-29] MEDS ORDERED: DIPHTH,PERTUSS(ACELL),TET 0.5 ML DISP.SYRIN IM ONE (12:17)
--- NOTE | 2019-09-29 12:21 | PDOC ---
History of Present Illness - General Chief Complaint: Injury Stated Complaint: LT. FOOT PAIN Time Seen by Provider: 09/29/19 11:27 - History of Present Illness Initial Comments: 09/29/19 12:17 68-year-old male with a past medical history of hypertension dyslipidemia and coronary artery disease presents for evaluation of the left foot puncture injury. He states about 5 days ago he stepped on a piece of plastic which went through his sock. Since that time his pain is been getting better but he wanted to have his foot checked. Past History - Past Medical History Allergies/Adverse Reactions: Allergies Allergy/AdvReac Type Severity Reaction Status Date / Time No Known Allergies Allergy Verified 09/29/19 10:38 Home Medications: Ambulatory Orders Losartan Potassium 50 mg PO DAILY 07/12/17 Cancer: Yes (BASAL CELL-NOSE, GOING FOR MOH'S PROCEDURE) Cardiac Disorders: Yes COPD: No CHF: (TRIPLE BYPASS 10YRS AGO) HTN: Yes Hypercholesterolemia: Yes - Surgical History Cardiac Surgery: Yes (TRIPLE BYPASS) - Immunization History Immunization Up to Date: No - Psycho Social/Smoking Cessation Hx Smoking Status: No Smoking History: Never smoked Have you smoked in the past 12 months: No Number of Cigarettes Smoked Daily: 0 If you are a former smoker, when did you quit?: 30yrs ago Hx Alcohol Use: No Drug/Substance Use Hx: No Substance Use Type: None Hx Substance Use Treatment: No Review of Systems - Review of Systems Musculoskeletal: Yes: Joint Pain *Physical Exam - Vital Signs Last Vital Signs Temp Pulse Resp BP Pulse Ox 97.5 F L 70 14 139/68 96 09/29/19 10:35 09/29/19 10:35 09/29/19 10:35 09/29/19 10:35 09/29/19 10:35 - Physical Exam Comments: 09/29/19 12:18 Left foot skin color and temperature are normal there is a superficial excoriation at the lateral aspect of the left heel without gross sensorimotor deficits normal surrounding skin color and temperature neurovascularly intact no indication of infection Medical Decision Making - Medical Decision Making 09/29/19 12:18 X-rays of the left foot show atherosclerotic disease mild arthritic changes no evidence of foreign body no evidence of infection or osteomyelitis. This is a left foot puncture wound which is resolving. No indication of infection at this time I will hold off on antibiotics update the patient's tetanus shot and have him follow-up with podiatry Discharge - Discharge Information Problems reviewed: Yes Clinical Impression/Diagnosis: Puncture wound of left foot Condition: Stable Disposition: HOME - Admission No - Follow up/Referral Referrals: Orlin Orellana MD [Primary Care Provider] - Tomy Payton MD [Non Staff, Medical] - - Patient Discharge Instructions Additional Instructions: A heel cup or gel insert will help you with your pain. You may keep the area clean and dry with soap and water. Return to the emergency room for worsening symptoms or increasing pain. Without fail please follow-up with podiatry in 2 to 3 days for a wound check. Your tetanus shot was updated today. - Post Discharge Activity
== END 2019-09-29 12:25 | disposition home or self-care (01) ==
LOC: JERFT 10:24
PROC: 3E0DX4Z Introduction of Serum, Toxoid and Vaccine into Mouth and Pharynx, External Approach (ICD-10-PCS; principal; 2019-09-29)
DX: S91.332A Puncture wound without foreign body, left foot, initial encounter (principal); W22.8XXA Striking against or struck by other objects, initial encounter; Y93.89 Activity, other specified; Y92.89 Other specified places as the place of occurrence of the external cause; Y99.8 Other external cause status; I25.10 Atherosclerotic heart disease of native coronary artery without angina pectoris; I10 Essential (primary) hypertension; Z95.1 Presence of aortocoronary bypass graft; C44.311 Basal cell carcinoma of skin of nose
CPT/HCPCS: 73630-TC-LT; 90471; 90715; 99281-25

== ENCOUNTER 2021-05-23 15:17 | Emergency (ER) | payer OTHER, MEDICARE ==
[2021-05-23 15:29] VITALS: BP 114/70; PULSE 66; TEMP 97.9; BMI 26.6
[2021-05-23 17:19] LABS: BASO % 0.9 % (0-2.0); EOS % 3.1 % (0-4.5); HEMOGLOBIN 14.1 GM/dL (11.7-16.9); LYMPH % 27.1 % (8-40); MCHC 34.5 g/dl (32.0-35.9); MEAN CELL VOLUME 84.3 fl (80-96); MEAN PLT VOLUME 7.8 fl (7.5-11.1); MONO % 9.3 % (3.8-10.2); NEUT % 59.6 % (42.8-82.8); PLATELET COUNT 215 10^3/uL (134-434); RBC 4.86 M/mm3 (4.00-5.60); RDW 13.4 % (11.9-15.9); WHITE BLOOD COUNT 7.3 K/mm3 (4.0-10.0)
[2021-05-23 17:41] LABS: CHLORIDE 101 mmol/L (98-107); SODIUM 135 mmol/L (136-145)
[2021-05-23 17:44] LABS: CALCIUM 9.3 mg/dL (8.5-10.1)
[2021-05-23 17:45] LABS: ALBUMIN 4.6 g/dl (3.4-5.0); ANION GAP 7 MMOL/L (8-16); BLOOD UREA NITROGEN 16.3 mg/dL (7-18); CO2 26 mmol/L (21-32); GLUCOSE,RANDOM 83 mg/dL (74-106); MAGNESIUM 2.5 mg/dL (1.8-2.4)
[2021-05-23 17:48] LABS: SGOT/AST 34 U/L (15-37); SGPT/ALT 34 U/L (13-61)
[2021-05-23 17:50] LABS: BILIRUBIN,TOTAL 0.6 mg/dL (0.2-1); TOT PROT 8.3 g/dl (6.4-8.2)
[2021-05-23 17:51] LABS: ALK PHOS 59 U/L (45-117)
[2021-05-23 17:53] LABS: N-TERMINAL BNP 108.2 pg/ml (5-125)
== END 2021-05-23 22:07 | disposition home or self-care (01) ==
LOC: JER 15:17
DX: R42 Dizziness and giddiness (principal)
CPT/HCPCS: 36415; 70450-TC; 70551-TC; 71045-TC-FY; 80053; 82550; 82553; 83735; 83880; 84484; 85025; 93005; 93010; 99285-25